=== PATIENT | male | born 1995 | race American Indian/Alaskan Native ===

== ENCOUNTER 2021-12-11 04:29 | Emergency (ER) | payer SELFPAY ==
[2021-12-11 04:42] VITALS: BP 149/95
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
== END 2021-12-11 06:40 | disposition home or self-care (01) ==
LOC: ED 04:29
DX: S70.12XA Contusion of left thigh, initial encounter (principal); I10 Essential (primary) hypertension; X58.XXXA Exposure to other specified factors, initial encounter; Y93.9 Activity, unspecified; Y92.89 Other specified places as the place of occurrence of the external cause; Y99.8 Other external cause status
CPT/HCPCS: 99282